=== PATIENT | male | born 1970 | race Caucasian/White ===

== ENCOUNTER → 2024-10-12 | Outpatient (CLI) | payer OTHER, SELFPAY ==
--- NOTE | 2024-10-12 | XR_ITS ---
Examination:Right hip AP, lateral, AP pelvis 3 views Technique: Hip AP lateral, AP pelvis, 3 views Exam date and time:October 12, 2024 0738 hours INDICATIONS: Right hip pain years. FINDINGS: Advanced right hip osteoarthritis Fragmentation and sclerosis right femoral head consistent with significant avascular necrosis Moderate to advanced narrowing left hip joint Surgical clips left pelvis IMPRESSION: Advanced right hip osteoarthritis Significant avascular necrosis right femoral head.
== END | disposition home or self-care (01) ==
LOC: CDIM 07:11
PROVIDERS: PCP Family Medicine; Referring Provider Chiropractor; Visit Provider Chiropractor
DX: M16.11 Unilateral primary osteoarthritis, right hip (principal); M87.851 Other osteonecrosis, right femur
CPT/HCPCS: 73502